=== PATIENT | male | born 1950 | race Caucasian/White ===

== ENCOUNTER 2019-09-28 14:50 | Outpatient (CLI) | payer MEDICARE, BC ==
--- NOTE | 2019-09-28 15:43 | ULT ---
VENOUS DOPPLER ULTRASOUND OF THE RIGHT LOWER EXTREMITY: 09/28/19 HISTORY: Right leg pain and edema. TECHNIQUE: Yancey scale, color flow with spectral Doppler imaging of the deep venous system of the right lower ex tremity is performed. FINDINGS: There is good flow, compression and augmentation noted in the common femoral, femoral, deep femoral, popliteal, posterior tibial and greater saphenous veins. Incidental note is made of a complex mass in the calf adjacent to the right medial knee running infer iorly without internal flow. This measures 9 x 2 cm. IMPRESSION: 1. No evidence of DVT in the right lower extremity. 2. Complex soft tissue mass in the right calf of uncertain etiology. Clinical correlation is rec ommended and may be further evaluated with an MRI. POS: [place]
== END 2019-09-28 14:51 | disposition home or self-care (01) ==
LOC: SCSULT 14:50
PROVIDERS: ATTEND Family Medicine
DX: M79.604 Pain in right leg (principal); R79.1 Abnormal coagulation profile; M79.89 Other specified soft tissue disorders

== ENCOUNTER 2023-04-04 15:50 | Outpatient (CLI) | payer MEDICARE, BC ==
[2023-04-04 17:13] LABS: #Basophils 0.1 10x3/uL (0.0-0.2); #Eosinphils 0.2 10x3/uL (0.0-0.5); #Monocytes 0.6 10x3/uL (0.0-1.1); #Neutrophils 4.8 10x3/uL (1.5-8.4); %Basophils 0.7 % (0.0-2.0); %Lymphocytes 25.3 % (18.0-47.0); %Monocytes 7.5 % (0.0-10.0); %Neutrophils 64.2 % (40.0-75.0); Hematocrit 42.1 % (38.8-50.0); Hemoglobin 14.1 g/dL (13.5-17.5); Mean Corpuscular HGB CONC 33.5 g/dL (32.0-36.0); Mean Corpuscular Hemoglobin 28.9 pg (27.0-33.0); Mean Corpuscular Volume 86.3 fl (81.2-95.1); Mean Platelet Volume 9.3 fl (7.4-10.4); Platelet Count 352 10x3/uL (150-450); RBC Distribution Width 13.2 % (11.5-14.5); Red Blood Cell (RBC) Count 4.88 10x6/uL (4.32-5.72); White Blood Cell (WBC) Count 7.5 10x3/uL (3.5-10.5)
[2023-04-04 17:29] LABS: Prothrombin Time 10.3 sec (9.5-12.1)
[2023-04-04 17:34] LABS: Anion Gap 17 mmol/L (10-20); BUN (Urea Nitrogen) 19 mg/dL (8.4-25.7); Calc. Creatinine Clearance 0 mL/min (70-130); Calcium 9.8 mg/dL (7.8-10.44); Carbon Dioxide 19 mmol/L (23-31); Chloride 105 mmol/L (98-107); Estimated GFR 90; Glucose 113 mg/dL (83-110); Potassium 4.3 mmol/L (3.5-5.1); Sodium 137 mmol/L (136-145)
== END 2023-04-04 15:51 | disposition home or self-care (01) ==
LOC: LABBT 15:50
PROVIDERS: ATTEND Orthopaedic Surgery
DX: Z01.818 Encounter for other preprocedural examination (principal); M17.11 Unilateral primary osteoarthritis, right knee
CPT/HCPCS: 80048; 85025; 85610; 87081; 93005; 93010

== ENCOUNTER 2023-04-08 06:19 | Inpatient (IN) | payer MEDICARE, BC ==
[2023-04-04 17:29] VITALS: BMI 29.9
[2023-04-08] MEDS ORDERED: Vancomycin (BATCH) 1.5 GM/300 ML BAG ONE (06:39)
[2023-04-08] MEDS ORDERED: Phenylephrine 40 MG/NS 250 ML 250 ML ONE (06:50)
[2023-04-08] MEDS ORDERED: fentaNYL PF 100 MCG/2 ML SYRINGE ONE (06:51)
[2023-04-08] MEDS ORDERED: fentaNYL 50 mcg/mL 1 mL Vial ONE ×2 (06:51→07:29)
[2023-04-08] MEDS ORDERED: Sodium Chloride 0.9% 100 ML ONE ×2 (07:16→07:26)
[2023-04-08] MEDS ORDERED: Tranexamic Acid 1,000 MG/10 ML VIAL ONE (07:16)
[2023-04-08] MEDS ORDERED: Bupivacaine 0.25% HCL 30 ML VIAL ONE (07:22)
[2023-04-08] MEDS ORDERED: EPINEPHrine 1 MG/ML VIAL ONE (07:22)
[2023-04-08] MEDS ORDERED: CEFAZOLIN 2 GM VIAL ONE (07:25)
[2023-04-08] MEDS ORDERED: Midazolam HCl 2 mg/2 ml Vial ONE (07:30)
[2023-04-08] MEDS ORDERED: Lidocaine 1% MPF 2 ML VIAL ONE (07:30)
[2023-04-08] MEDS ORDERED: PHENYLEPHRINE-NS 100 MCG/ML 10 ML SYRINGE ONE (07:56)
[2023-04-08] MEDS ORDERED: Bupivacaine HCl 0.5%/Epinephrine 1:200,000/PF 30 ml Vial ONE (07:56)
[2023-04-08] MEDS ORDERED: Lidocaine 1% PF 5 ML VIAL ONE (07:56)
[2023-04-08] MEDS ORDERED: PROPOFOL 200 MG/20 ML VIAL ONE (07:56)
[2023-04-08] MEDS ORDERED: Ropivacaine 0.2% 550 ML 550 ML NERVE BLCK SCH (08:30)
[2023-04-08] MEDS ORDERED: fentaNYL 50 mcg/mL 1 mL Vial SLOW IVP PRN (08:30)
[2023-04-08] MEDS ORDERED: Ondansetron PF 4 MG/2 ML Vial IVP PRN ×2 (08:30→09:38)
[2023-04-08] MEDS ORDERED: traMADol HCl 50 MG TAB PO PRN ×2 (08:30)
[2023-04-08] MEDS ORDERED: Zolpidem Tartrate 5 MG TAB PO PRN ×2 (08:30→09:38)
[2023-04-08] MEDS ORDERED: HYDROcodone/Acetaminophen 10/325 mg Tablet PO PRN ×2 (08:30)
[2023-04-08] MEDS ORDERED: Promethazine HCl 25 MG/ML VIAL IM PRN ×3 (08:30→09:53)
[2023-04-08] MEDS ORDERED: Acetaminophen 325 MG TAB PO PRN (09:38)
[2023-04-08] MEDS ORDERED: diphenhydrAMINE 25 MG CAP PO PRN (09:38)
[2023-04-08] MEDS ORDERED: HYDROmorphone 2 MG/ML VIAL SLOW IVP PRN (09:53)
[2023-04-08] MEDS ORDERED: Ondansetron HCl/PF 4 MG/2 ML Vial IVP PRN (09:53)
[2023-04-08] MEDS ORDERED: Aspirin 81 mg Enteric Coated Tablet PO SCH (10:30)
[2023-04-08] MEDS: Ketorolac Tromethamine 30 MG/ML VIAL IVP SCH ×3 (11:16→23:50)
[2023-04-08] MEDS: Sodium Chloride 0.9% 1,000 ML IV SCH ×2 (11:17→18:48)
[2023-04-08] MEDS: CEFAZOLIN 2 GM in Sodium Chloride 0.9% 100 ML IVPB SCH ×2 (15:21→23:50)
[2023-04-08] MEDS: Aspirin 81 mg Enteric Coated Tablet PO SCH (21:50)
[2023-04-09 05:19] LABS: Hematocrit 34.5 % (42.0-52.0); Hemoglobin 11.5 g/dL (14.0-18.0); Mean Corpuscular HGB CONC 33.3 g/dL (32.0-36.0); Mean Corpuscular Hemoglobin 28.8 pg (27.0-31.0); Mean Corpuscular Volume 86.3 fl (78.0-98.0); Mean Platelet Volume 9.1 fL (7.4-10.4); Platelet Count 335 10x3/uL (130-400); RBC Distribution Width 13.2 % (11.5-14.5); White Blood Cell (WBC) Count 13.5 10x3/uL (4.8-10.8)
[2023-04-09] MEDS: Sodium Chloride 0.9% 1,000 ML IV SCH (05:29)
[2023-04-09] MEDS: Ketorolac Tromethamine 30 MG/ML VIAL IVP SCH (06:03)
[2023-04-09] MEDS ORDERED: Ferrous Gluconate 324 MG TAB PO SCH (08:00)
[2023-04-09 08:04] VITALS: BP 149/71; TEMP 98
[2023-04-09] MEDS ORDERED: Multivitamin W/ Minerals 1 TAB PO SCH (09:00)
[2023-04-09] MEDS ORDERED: Senokot S 8.6-50 MG TAB PO SCH (09:00)
[2023-04-09] MEDS: Aspirin 81 mg Enteric Coated Tablet PO SCH (09:01)
== END 2023-04-09 10:16 | disposition home or self-care (01) | DRG 470 ==
LOC: SDC 06:19 → SURG A 09:38
PROVIDERS: ADMIT Orthopaedic Surgery; ATTEND Orthopaedic Surgery
PROC: 0SRC0J9 Replacement of Right Knee Joint with Synthetic Substitute, Cemented, Open Approach (ICD-10-PCS; principal; 2023-04-08)
DX: M17.11 Unilateral primary osteoarthritis, right knee (principal); M87.851 Other osteonecrosis, right femur; E78.00 Pure hypercholesterolemia, unspecified; Z98.890 Other specified postprocedural states; Z98.42 Cataract extraction status, left eye; Z82.49 Family history of ischemic heart disease and other diseases of the circulatory system; Z87.891 Personal history of nicotine dependence; Z79.899 Other long term (current) drug therapy; Z88.8 Allergy status to other drugs, medicaments and biological substances
CPT/HCPCS: 36415; 85027; A4306; C1776; J0171; J1885; J2250; J2704; J2795; J3010; J3370; J3490; J7050; S0020

== ENCOUNTER 2024-04-15 12:37 | Outpatient (CLI) | payer MEDICARE | END 2024-04-15 12:38 | disposition home or self-care (01) | LOC: SCSMRI 12:37 | PROVIDERS: ATTEND Psychiatry & Neurology Neurology | DX: R41.3 Other amnesia (principal); I67.89 Other cerebrovascular disease; G31.9 Degenerative disease of nervous system, unspecified; G93.89 Other specified disorders of brain | CPT/HCPCS: 70553; 76376 ==

== ENCOUNTER 2024-04-28 07:09 | Day surgery (SDC) | payer MEDICARE ==
[2024-04-28] MEDS ORDERED: Sodium Bicarbonate 2.5 MEQ/5 ML SDV ONE (07:41)
[2024-04-28 10:11] LABS: CSF Source CSF; Clarity Clear (Clear); Tube # 4
[2024-04-28 10:25] LABS: CSF, Protein 32.4 mg/dL (15-40)
[2024-04-30 06:16] LABS: HSV 1 - DNA, CSF Negative (Negative); HSV 2 - DNA, CSF Negative (Negative)
[2024-04-30 16:12] LABS: VDRL, CSF Non Reactive (Non Rea:<1:1)
== END 2024-04-28 10:50 | disposition home or self-care (01) ==
LOC: RAD 07:09
PROVIDERS: ATTEND Psychiatry & Neurology Neurology
PROC: 009U3ZZ Drainage of Spinal Canal, Percutaneous Approach (ICD-10-PCS; principal; 2024-04-28)
DX: G91.2 (Idiopathic) normal pressure hydrocephalus (principal); I10 Essential (primary) hypertension; E78.00 Pure hypercholesterolemia, unspecified; Z90.49 Acquired absence of other specified parts of digestive tract; Z98.42 Cataract extraction status, left eye; Z96.651 Presence of right artificial knee joint; Z87.891 Personal history of nicotine dependence; Z98.890 Other specified postprocedural states; Z91.030 Bee allergy status; Z79.1 Long term (current) use of non-steroidal anti-inflammatories (NSAID); Z79.51 Long term (current) use of inhaled steroids; Z79.899 Other long term (current) drug therapy
CPT/HCPCS: 62270; 82945; 84157; 86592; 86612; 86635; 86698; 87070; 87205; 87529; 89051